=== PATIENT | male | born 1950 | race Caucasian/White ===

== ENCOUNTER → 2019-06-04 | Outpatient (CLI) | payer MEDICARE ==
--- NOTE | 2019-06-04 10:21 | REP ---
RIGHT CLAVICLE: Two views of the right clavicle are performed. No fracture or dislocation is seen. There is mild spurring at the acromioclavicular joint. IMPRESSION: Mild spurring AC joint. Electronically Signed by Jensen Bhat MD 06/04/2019 05:35 P
== END ==
LOC: M WUC 09:49
PROVIDERS: ATTEND Physician Assistant
DX: M25.711 Osteophyte, right shoulder (principal)